=== PATIENT | male | born 1950 | race Caucasian/White ===

== ENCOUNTER 2017-10-14 01:18 | Inpatient (IN) | payer MEDICARE, BC ==
[~2017-10-14] VITALS: Ht 180.3 cm; Wt 108.6 kg
[2017-10-14] MEDS ORDERED: SODIUM CHLORIDE 0.9% 1L BAG IV* STA (01:31)
[2017-10-14] MEDS ORDERED: LORAZEPAM 2 MG INJ IV ONE (02:00)
--- NOTE | 2017-10-14 02:08 | RADRPT ---
PROCEDURE: CHEST - 1 VIEW CLINICAL INDICATION: 67-year-old male with shortness of breath and sepsis. TECHNIQUE: A single frontal AP portable view of the chest was performed. The images were reviewed on a PACS workstation. COMPARISON: None. FINDINGS: The cardiomediastinal silhouette is prominent but within normal limits. The right lower lateral ches t wall costophrenic angle is incompletely visualized. There is a shallow inspiration. There is patch y infiltrate within the left mid/lower lung zone. There is no evidence for congestive heart failure . There is no evidence for pneumothorax. The osseous structures are intact. IMPRESSION: Patchy left mid/lower lung zone infiltrate. .Tristan Head MD, Date Time Electronically viewed and signed by .Tristan Head MD, on 10/14/2017 02:07 .[place]
[2017-10-14 02:29] LABS: ABNORMAL IP MESSAGE 1; BASOPHILS % 0.3 % (0.0-2.0); HEMATOCRIT 41.4 % (42.0-52.0); HEMOGLOBIN 14.4 g/dl (14.0-18.0); LYMPHOCYTES # 0.4 10^3/ul (0.8-2.9); LYMPHOCYTES % 3.4 % (15.0-51.0); MEAN CORPUSCULAR HEMOGLOBIN 31.7 pg (29.0-33.0); MEAN CORPUSCULAR HGB CONC 34.8 g/dl (32.0-37.0); MEAN CORPUSCULAR VOLUME 91.2 fl (82.0-101.0); MEAN PLATELET VOLUME 11.1 fl (7.4-10.4); MONOCYTE # 0.7 10^3/ul (0.3-0.9); MONOCYTES % 5.8 % (0.0-11.0); NEUTROPHIL # 11.5 10^3/ul (1.6-7.5); NEUTROPHILS % 89.8 % (39.0-77.0); PLATELET COUNT 122 10^3/UL (140-415); POSITIVE DIFF @See below; RED BLOOD COUNT 4.54 10^6/ul (4.70-6.10); RED CELL DISTRIBUTION WIDTH 13.7 % (11.5-14.5); WHITE BLOOD COUNT 12.8 10^3/ul (4.8-10.8)
[2017-10-14 02:49] LABS: ALBUMIN 3.7 g/dl (3.3-4.9); ALBUMIN/GLOBULIN RATIO 1.19; BILIRUBIN,INDIRECT 0.4 mg/dl (0-1.1); BILIRUBIN,TOTAL 0.4 mg/dl (0.2-1.3); CALCIUM 8.1 mg/dl (8.4-10.2); CREATININE 1.07 mg/dl (0.61-1.24); POTASSIUM 3.3 mmol/L (3.5-5.1); TOTAL PROTEIN 6.8 g/dl (6.1-8.1)
[2017-10-14 02:53] LABS: ADD UMIC YES; UR ASCORBIC ACID 40 mg/dL (NEGATIVE); UR BILIRUBIN (Dip) NEGATIVE (NEGATIVE); UR BLOOD (Dip) 1+ mg/dL (NEGATIVE); UR CLARITY SLIGHTLY CLOUDY (CLEAR); UR COLOR AMBER (YELLOW); UR GLUCOSE (Dip) 1+ mg/dL (NEGATIVE); UR KETONES (Dip) 1+ mg/dL (NEGATIVE); UR LEUKOCYTE ESTERASE (Dip) NEGATIVE Leu/ul (NEGATIVE); UR MUCUS MODERATE /HPF (NONE SEEN); UR NITRITE (Dip) NEGATIVE (NEGATIVE); UR RBC 3 /HPF (0-5); UR SPECIFIC GRAVITY (Dip) 1.028 (1.003-1.030); UR SQUAMOUS EPITHELIAL CELL FEW /HPF (FEW); UR TOTAL PROTEIN (Dip) 2+ mg/dl (NEGATIVE); UR UROBILINOGEN (Dip) NEGATIVE (NEGATIVE)
[2017-10-14 02:55] LABS: INR 1.03; PROTIME 13.5 Sec (12.2-14.2); PT RATIO 1.1
[2017-10-14 02:56] LABS: PARTIAL THROMBOPLASTIN TIME 34.4 Sec (25.0-35.0)
[2017-10-14 03:03] LABS: TROPONIN-I 0.159 ng/ml (0.00-0.12)
--- NOTE | 2017-10-14 04:22 | ERD ---
ER Documentation Chief Complaint Chief Complaint YOAN Rangel1, from home, c/o dizziness,hx ETOH abuse, last drink a week ago HPI This is a 67-year-old male brought in by BLS from home with complaints of dizziness. Patient has history of chronic alcohol abuse and said he stopped drinking 1 week ago. He says he feels dizzy and tremulous. Denies any chest pain or palpitations. Denies any focal neurological complaints. Denies any auditory or visual hallucinations. Symptomology started 2 days ago and is been getting progressively worse for the patient. ROS All systems reviewed and are negative except as per history of present illness. Allergies Allergies: Coded Allergies: No Known Allergy (Unverified , 10/14/17) PMhx/Soc History of Surgery: No Anesthesia Reaction: No Hx Neurological Disorder: No Hx Respiratory Disorders: No Hx Cardiac Disorders: No Hx Psychiatric Problems: No Hx Miscellaneous Medical Probl: Yes Hx Alcohol Use: Yes Hx Substance Use: No Hx Tobacco Use: Yes (quit cigarettes 1 wk ago) Smoking Status: Former smoker Physical Exam Vitals Vital Signs Date Time Temp Pulse Resp B/P Pulse Ox O2 Delivery O2 Flow Rate FiO2 10/14/17 01:55 102.3 120 24 154/93 98 Room Air 10/14/17 01:23 102.9 99 18 174/117 98 Physical Exam Const: [] Head: Atraumatic Eyes: Normal Conjunctiva ENT: Normal External Ears, Nose and Mouth. Neck: Full range of motion..~ No meningismus. Resp: Clear to auscultation bilaterally Cardio: Regular rate and rhythm, no murmurs Abd: Soft, non tender, non distended. Normal bowel sounds Skin: No petechiae or rashes Back: No midline or flank tenderness Ext: No cyanosis, or edema Neur: Awake and alert Psych: Normal Mood and Affect Result Diagram: 10/14/1715410/14/17 0155 Results 24 hrs Laboratory Tests Test 10/14/17 01:55 White Blood Count 12.810^3/ul Red Blood Count 4.5410^6/ul Hemoglobin 14.4g/dl Hematocrit 41.4% Mean Corpuscular Volume 91.2fl Mean Corpuscular Hemoglobin 31.7pg Mean Corpuscular Hemoglobin Concent 34.8g/dl Red Cell Distribution Width 13.7% Platelet Count 94289^3/UL Mean Platelet Volume 11.1fl Neutrophils % 89.8% Lymphocytes % 3.4% Monocytes % 5.8% Eosinophils % 0.0% Basophils % 0.3% Nucleated Red Blood Cells % 0.0/100WBC Neutrophils # 11.510^3/ul Lymphocytes # 0.410^3/ul Monocytes # 0.710^3/ul Eosinophils # 0.010^3/ul Basophils # 0.010^3/ul Nucleated Red Blood Cells # 0.010^3/ul Prothrombin Time 13.5Sec Prothrombin Time Ratio 1.1 INR International Normalized Ratio 1.03 Activated Partial Thromboplast Time 34.4Sec Urine Color BECKY Urine Clarity SLIGHTLY CLOUDY Urine pH 5.0 Urine Specific [place] 1.028 Urine Ketones 1+mg/dL Urine Nitrite NEGATIVEmg/dL Urine Bilirubin NEGATIVEmg/dL Urine Urobilinogen NEGATIVEmg/dL Urine Leukocyte Esterase NEGATIVELeu/ul Urine Microscopic RBC 3/HPF Urine Microscopic WBC 8/HPF Urine Squamous Epithelial Cells FEW/HPF Urine Mucus MODERATE/HPF Urine Hemoglobin 1+mg/dL Urine Glucose 1+mg/dL Urine Total Protein 2+mg/dl Sodium Level 131mmol/L Potassium Level 3.3mmol/L Chloride Level 98mmol/L Carbon Dioxide Level 19mmol/L Anion Gap 17 Blood Urea Nitrogen 17mg/dl Creatinine 1.07mg/dl Glucose Level 162mg/dl Lactic Acid Level 1.9mmol/L Calcium Level 8.1mg/dl Total Bilirubin 0.4mg/dl Direct Bilirubin 0.00mg/dl Indirect Bilirubin 0.4mg/dl Aspartate Amino Transf (AST/SGOT) 43IU/L Alanine Aminotransferase (ALT/SGPT) 29IU/L Alkaline Phosphatase 82IU/L Troponin I 0.159ng/ml Total Protein 6.8g/dl Albumin 3.7g/dl Globulin 3.10g/dl Albumin/Globulin Ratio 1.19 Current Medications Medications (Trade) Dose Ordered Sig/Joey Route PRN Reason Start Time Stop Time Status Last Admin Dose Admin Sodium Chloride (NS) 3,380 ml BOLUS OVER 2 HOURS STAT IV* 10/14/17 01:31 10/14/17 01:32 DC 10/14/17 02:43 Lorazepam (Ativan) 2 mg ONCE ONCE IV 10/14/17 02:00 10/14/17 02:01 DC 10/14/17 02:43 Procedures/MDM EKG: Rate/Rhythm: [Normal Sinus Rhythm] QRS, ST, T-waves: [No changes consistent w/ acute ischemia] Impression: [No evidence of ischemia or arrhythmia] Chest X-ray 1V Interpreted by me: Soft Tissue: No acute abnormalities Bones: No acute abnormalities Mediastinum/Cardiac Silhouette/Lungs: [No acute abnormalities] Patient's symptoms are concerning for cardiac cause will require inpatient workup and continuous monitoring. Further w/u for ischemia, arrhythmia, PE or dissection will be deferred to the inpatient team. Patient has a positive troponin possibly secondary to alcohol withdrawal and the stress that is per the mother. He will be admitted to hospitalist with cardiology consultation Accepting Care Team: Current data and ongoing care discussed. Time: 5 AM Primary Provider: Ki Consulting: [MIL] Outstanding Data: none Critical Care: Time: 45 minutes Treatments/Evaluations: Close monitoring and treatment of unstable vital signs, cardiorespiratory, and neurologic status, while maintaining tight balance of fluid, respiratory, and cardiac interventions. Departure Diagnosis: Primary Impression: NSTEMI (non-ST elevated myocardial infarction) Additional Impression: Alcohol withdrawal Complication of substance-induced condition: with unspecified complication Qualified Code: F10.239 - Alcohol withdrawal syndrome with complication Condition: Serious LAURO BRYSON Oct 14, 2017 04:22
[2017-10-14] MEDS ORDERED: ASPIRIN 81 MG TAB PO ONE (04:30)
[2017-10-14] MEDS ORDERED: ACETAMINOPHEN 325 MG TAB PO PRN (06:00)
[2017-10-14] MEDS ORDERED: BISACODYL (EC) 5 MG TAB PO PRN (06:00)
[2017-10-14] MEDS ORDERED: ONDANSETRON 4 MG INJ IV PRN (06:00)
[2017-10-14] MEDS ORDERED: NITROGLYCERIN (SL) 0.4 MG TAB SL PRN (06:00)
[2017-10-14] MEDS ORDERED: LEVOFLOXACIN 750MG/D5W (PMX) 150 ML IVPB SCH (06:00)
[2017-10-14] MEDS ORDERED: NACL 0.9% 3 ML SYG IV SCH (06:00)
[2017-10-14] MEDS ORDERED: LORAZEPAM 2 MG INJ IM PRN (06:00)
[2017-10-14] MEDS ORDERED: DOCUSATE SODIUM 100 MG CAP PO PRN (06:00)
[2017-10-14 09:30] VITALS: TEMP 99.1
[2017-10-14 10:08] LABS: ABNORMAL IP MESSAGE 1; BASOPHILS % 0.4 % (0.0-2.0); HEMATOCRIT 42.3 % (42.0-52.0); HEMOGLOBIN 14.5 g/dl (14.0-18.0); LYMPHOCYTES # 0.5 10^3/ul (0.8-2.9); LYMPHOCYTES % 4.2 % (15.0-51.0); MEAN CORPUSCULAR HEMOGLOBIN 32.1 pg (29.0-33.0); MEAN CORPUSCULAR HGB CONC 34.3 g/dl (32.0-37.0); MEAN CORPUSCULAR VOLUME 93.6 fl (82.0-101.0); MEAN PLATELET VOLUME 11.7 fl (7.4-10.4); MONOCYTE # 0.6 10^3/ul (0.3-0.9); MONOCYTES % 5.8 % (0.0-11.0); NEUTROPHIL # 9.8 10^3/ul (1.6-7.5); PLATELET COUNT 112 10^3/UL (140-415); POSITIVE DIFF @See below; RED BLOOD COUNT 4.52 10^6/ul (4.70-6.10); RED CELL DISTRIBUTION WIDTH 14.3 % (11.5-14.5); WHITE BLOOD COUNT 11.1 10^3/ul (4.8-10.8)
[2017-10-14 10:25] LABS: ALBUMIN 3.1 g/dl (3.3-4.9); ALBUMIN/GLOBULIN RATIO 1.06; BILIRUBIN,INDIRECT 0.3 mg/dl (0-1.1); BILIRUBIN,TOTAL 0.3 mg/dl (0.2-1.3); CALCIUM 7.4 mg/dl (8.4-10.2); CHOL/HDL RATIO 2.9 RATIO; CREATININE 0.9 mg/dl (0.61-1.24); MAGNESIUM 1.9 mg/dl (1.7-2.5); POTASSIUM 3.5 mmol/L (3.5-5.1)
[2017-10-14 11:12] LABS: THYROID STIMULATING HORMONE 1.35 MIU/L (0.465-4.680)
--- NOTE | 2017-10-14 11:16 | HP ---
Date/Time of Note Date/Time of Note DATE: 10/14/17 TIME: 11:06 Assessment/Plan VTE Prophylaxis VTE Prophylaxis Intervention: LMWH Assessment/Plan Chief Complaint/Hosp Course 67 yo male with h/o etoh use d/o, tobacco use d/o, hypertension, obesity, treated HCV who presents with fevers/cough/malaise with CXR suggestive of community acquired pneumonia. Labs notable for elevated troponin, likley 2/2 demand ischemia Community acquired pneumonia: - Will continue levaquin given clinical improvement - Duonebs given wheezing - Should have follow up imaging to ensure resolution of infiltrate given h/o smoking and risk for malignancy - Flu swab - Droplet precautions until flu neg NSTEMI: - Suspect this is type II from demand given systemic illness and lack of chest pain. Trend troponins - Check TTE - Aspirin daily - Hold AC unless markedly elevated troponins Tobacoo use d/o: - NRT if needed Etoh use d/o: - Monitor for signs of withdrawal, none currently Problems: HPI/ROS Admit Date/Time Admit Date/Time Hx of Present Illness 67 yo male with h/o tobacco use d/o, etoh use d/o, hypertension, obesity, HCV s/ p interferon. Was in [facility] until about a week ago. He has developed fevers, cough, malaise and lightheadnedness over this time. Body aches. Feels he has the "flu" though does also say he got the flu shot a couple months ago. Denies any chest symptoms beyond cough, no CP no angina. Also denies SOB though he is clearly tachypneic. Cough is dry, no phlegm. Yesterday developed n/v and diarrhea. Was lightheaded and weak so came to ED Here found to be febrile and mildly tachypneic. CXR shows infiltrate. Given levaquin and fliuds Seen after these events, feels a bit better he says Troponin is positive, denies any CP, no angina. Says he stopped drinking 1-2 weeks ago. Before this drank daily. Has never had withdrawals before. No known complications from etoh PMH/Family/Social Past Medical History Treated HCV Etoh use Tobacco use Obestiy Hypertension Social History Alcohol Use: heavy Smoking Status: Former smoker Drug Use: other Exam/Review of Systems Vital Signs Vitals Vital Signs Date Time Temp Pulse Resp B/P Pulse Ox O2 Delivery O2 Flow Rate FiO2 10/14/17 09:30 99.1 111 30 131/85 98 Room Air Exam Exam Alert, oriented x 3 Resting comfortably Mildly diaphoretic Slightly tachypneic, though nonlabored. Expiratory wheezing in LLL heart sound tachy, regular Abdomen obese, soft, nt Ext without edema Labs Result Diagram: 10/14/1795010/14/17950 Medications Medications Current Medications Levofloxacin/ Dextrose (Levaquin 750 Mg/ D5W 150 ml (Pmx)) 150 ml @ 100 mls/hr Q24H IVPB Last administered on 10/14/17t 06:12; Admin Dose 100 MLS/HR; Start 10/14/17 at 06:00 Lorazepam (Ativan) 1 mg Q4 PRN IM AGITATION/ANXIETY; Start 10/14/17 at 06:00 Ondansetron HCl (Zofran Inj) 4 mg Q6H PRN IV NAUSEA AND/OR VOMITING; Start at 06:00 Nitroglycerin (Nitroglycerin (Sl Tab) 0.4 Mg) 1 tab Q5M PRN SL CHEST PAIN; Start 10/14/17 at 06:00 Acetaminophen (Tylenol Tab) 650 mg Q6H PRN PO PAIN LEVEL 1-3 OR FEVER; Start 10/14/17 at 06:00 Docusate Sodium (Colace) 100 mg Q12H PRN PO CONSTIPATION; Start 10/14/17 at 06 :00 Bisacodyl (Dulcolax) 5 mg DAILY PRN PO CONSTIPATION; Start 10/14/17 at 06:00 Procedures Procedures EKG: Sinus tachy, prominent P waves, PVCs, PACs. No ST deviation DARYN BERNABE MD Oct 14, 2017 11:16
--- NOTE | 2017-10-14 14:08 | QN ---
Documentation Comment Observation Note: Time: 4 hours Family Hx: Negative for diabetes Evaluation: Multiple exams showed improving symptoms and no evidence of clinical decompensation. OLAMIDE HERNANDEZ MD Oct 14, 2017 14:08
[2017-10-14 15:08] LABS: CK-MB 5.44 ng/ml (0.0-2.4); TROPONIN-I 0.242 ng/ml (0.00-0.12)
--- NOTE | 2017-10-14 16:17 | RADRPT ---
Echocardiogram Report Patient Name: JAME GÓMEZ Gender: Male Date: 1950 Study Date: 14-Oct-2017 Refinisher: Gabriela [facility] Location: [facility] Ref. Physician: ANGELO RICHARDSON Quality: Adequate Procedures: Transthoracic echocardiogram with complete 2D, M-Mode, and doppler examination. Indications: Elevated troponin. 2D/M Mode Doppler Measurement Value Normal Ranges Measurement Value Normal Ranges LVIDd 2D 5.6 3.5 - 5.6 cm TONE Vmax 2.2 cm2 LVIDs 2D 4.5 2.1 - 4.1 cm AV Peak Eloy 1.5 m/sec FS 2D 19.6 % AV Peak PG 9.0 mmHg LVPWd 2D 1.5 0.6 - 1.1 cm LVOT Peak Eloy 1.0 m/sec IVSd 2D 1.5 0.6 - 1.1 cm LVOT Peak PG 4.0 mmHg IVS/LVPW 2D 1.0 MV E Peak Eloy 1.1 m/sec AoR Diam 2D 3.5 2.0 - 3.7 cm MV Decel Time 127 msec LA/Ao 2D 1 0 - 1 TR Peak Eloy 3.4 m/sec EDV 2D 176.0 cm3 TR Peak PG 45.0 mmHg ESV 2D 91.1 cm3 RVSP 48.0 mmHg LA Dimen 2D 3.9 2.3 - 4.0 cm LVOT Diam 2.1 cm LVOT Area 3.5 cm2 Findings Left Ventricle: Overall, mild left ventricular systolic dysfunction. Not all segments visualized. Normal left ventricular cavity size. Moderate concentric left ventricular hypertrophy. Ejection fraction is visually estimated at 45 %. Abnormal Diastolic Function. Right Ventricle: Normal right ventricular size. Normal right ventricular systolic function. Left Atrium: The left atrium is normal in size. Right Atrium: The right atrium is normal in size. Mitral Valve: Mild mitral leaflet calcification. Mild mitral annular calcification. Trace mitral regurgitation. Aortic Valve: Normal appearance of the aortic valve. No significant aortic stenosis or insufficiency. Tricuspid Valve: Normal appearance of the tricuspid valve. Estimated peak PA systolic pressure 48 mmHg. There is mild tricuspid regurgitation. Pericardium: Normal pericardium with no significant pericardial effusion. Aorta: Normal aortic root. IVC: Normal size and normal respiratory collapse consistent with normal right atrial pressure. Conclusions 1.Overall, mild left ventricular systolic dysfunction. Not all segments visualized. Normal left ventricular cavity size. Moderate concentric left ventricular hypertrophy. Ejection fraction is visually estimated at 45 %. Abnormal Diastolic Function. 2.Normal right ventricular size. Normal right ventricular systolic function. 3.The left atrium is normal in size. 4.The right atrium is normal in size. 5.Normal appearance of the tricuspid valve. Estimated peak PA systolic pressure 48 mmHg. There is mild tricuspid regurgitation. 6.No significant valvular stenosis or regurgitation seen of remaining visualized valves. 7.Normal pericardium with no significant pericardial effusion. Electronically Signed By: Jame Moreau 14-Oct-2017 16:17:01 -0800 Patient Name: JAME GÓMEZ Study Date: 14-Oct-2017 [id number]
[2017-10-14 18:26] VITALS: PULSE 157
[2017-10-14 18:31] VITALS: BP 141/93; RESP 45
[2017-10-14] MEDS: ALBUTEROL/IPRATROPIUM (NEB) 3 ML AMP HHN SCH ×2 (18:46→20:43)
[2017-10-14] MEDS ORDERED: VANCOMYCIN IV PER PHARMACY XX SCH (19:30)
[2017-10-14] MEDS ORDERED: ACETYLCYSTEINE 20% 4 ML VIAL ONE (19:32)
[2017-10-14 19:44] VITALS: BP 159/98; RESP 24
[2017-10-14 20:00] VITALS: PULSE 136
[2017-10-14] MEDS: IBUPROFEN 600 MG TAB PO PRN ×2 (20:48→20:50)
[2017-10-14] MEDS: PIPER-TAZO 3.375 GM IV (PMX) 50 ML IVPB SCH (20:51)
[2017-10-14 21:21] LABS: CK-MB 5.43 ng/ml (0.0-2.4); TROPONIN-I 0.272 ng/ml (0.00-0.12)
[2017-10-14] MEDS ORDERED: VANCOMYCIN 2 GM in SOD CHLORIDE 0.9% 500 ML IVPB SCH (21:30)
[2017-10-14 23:13] VITALS: Ht 180.3 cm; Wt 108.6 kg
[2017-10-15] VITALS (13 sets, daily range): BP systolic 111–161; BP diastolic 59–105; PULSE 89–132; RESP 18–24
[2017-10-15] MEDS ORDERED: SOD CHLORIDE 0.9% 500 ML IV ONE
[2017-10-15] MEDS: ALBUTEROL/IPRATROPIUM (NEB) 3 ML AMP HHN SCH ×6 (01:00→20:21)
[2017-10-15 03:51] LABS: CALCIUM 7.6 mg/dl (8.4-10.2); CREATININE 0.86 mg/dl (0.61-1.24); MAGNESIUM 2.4 mg/dl (1.7-2.5)
[2017-10-15 03:54] LABS: POTASSIUM 2.9 mmol/L (3.5-5.1)
[2017-10-15] MEDS ORDERED: POTASSIUM CHLORIDE 250 ML IVPB ONE (04:00)
[2017-10-15] MEDS ORDERED: POTASSIUM CHLORIDE (SR) 20 MEQ TAB PO ONE (04:02)
[2017-10-15] MEDS: PIPER-TAZO 3.375 GM IV (PMX) 50 ML IVPB SCH ×3 (04:10→17:36)
[2017-10-15 07:32] LABS: ABNORMAL IP MESSAGE 1; BASOPHILS % 0.5 % (0.0-2.0); MONOCYTE # 0.4 10^3/ul (0.3-0.9); NEUTROPHIL # 7.4 10^3/ul (1.6-7.5)
[2017-10-15 07:42] LABS: EOSINOPHILS % 0.1 % (0.0-7.0); HEMATOCRIT 45.4 % (42.0-52.0); HEMOGLOBIN 15.4 g/dl (14.0-18.0); LYMPHOCYTES # 0.2 10^3/ul (0.8-2.9); LYMPHOCYTES % 2.9 % (15.0-51.0); MEAN CORPUSCULAR HEMOGLOBIN 31.7 pg (29.0-33.0); MEAN CORPUSCULAR HGB CONC 33.9 g/dl (32.0-37.0); MEAN CORPUSCULAR VOLUME 93.4 fl (82.0-101.0); MEAN PLATELET VOLUME 11.2 fl (7.4-10.4); MONOCYTES % 4.7 % (0.0-11.0); NEUTROPHILS % 90.3 % (39.0-77.0); PLATELET COUNT 104 10^3/UL (140-415); POSITIVE DIFF @See below; RED BLOOD COUNT 4.86 10^6/ul (4.70-6.10); RED CELL DISTRIBUTION WIDTH 14.3 % (11.5-14.5); WHITE BLOOD COUNT 8.1 10^3/ul (4.8-10.8)
[2017-10-15 08:11] LABS: ALBUMIN 2.6 g/dl (3.3-4.9); ALBUMIN/GLOBULIN RATIO 0.89; BILIRUBIN,INDIRECT 0.4 mg/dl (0-1.1); BILIRUBIN,TOTAL 0.4 mg/dl (0.2-1.3); CREATININE 0.93 mg/dl (0.61-1.24); POTASSIUM 3.7 mmol/L (3.5-5.1); TOTAL PROTEIN 5.5 g/dl (6.1-8.1)
[2017-10-15 08:24] LABS: CK-MB 10.1 ng/ml (0.0-2.4); TROPONIN-I 0.158 ng/ml (0.00-0.12)
[2017-10-15] MEDS: ASPIRIN 81 MG TAB PO SCH (08:38)
[2017-10-15] MEDS: ENOXAPARIN 30 MG/0.3 ML SYG SC SCH (08:39)
--- NOTE | 2017-10-15 08:46 | RADRPT ---
PROCEDURE: CT chest without intravenous contrast CLINICAL INDICATION: Respiratory failure. COMPARISON: Chest plain film 10/14/2017. TECHNIQUE: Axial images of the chest with sagittal and coronal reconstructions. DICOM images are brit ilable. DOSE ESTIMATE: CTDI vol = 16.36 mGy. DLP = 676.52 mGy-cm. One or more of the following dose reduct ion techniques were used: automated exposure control, adjustment of the mA and/or kV according to pa tient size, or use of iterative reconstruction. FINDINGS: Lungs: There is dense consolidation with air bronchogram involving the left apical posterior segment of the upper lobe and lingula. Diffuse infiltrates are present within the left apex and anterior le ft upper lobe. Pleura: There is a small left-sided pleural effusion. Airway: The central tracheobronchial tree is clear. There is no demonstration of an endobronchial or extrinsically obstructing lesion. Mediastinum and irina: No adenopathy. No hiatal hernia. Vessels: There is borderline aneurysmal dilatation of the ascending thoracic aorta which measures 4. 2 x 4.8 cm in AP and transverse dimensions respectively. The descending thoracic aorta measures 3.5 x 3.4 cm. Minimal aortic atherosclerotic calcifications are present. Heart: There is moderately severe cardiomegaly without evidence of a pericardial effusion. Left ant erior descending atherosclerotic calcifications are noted. Bones: Anterior spinal degenerative enthesopathy changes involve T4 - T6. Soft tissues: Normal. Visualized neck: Normal. Visualized abdomen: 3 cm left upper pole renal cyst demonstrated on axial image 140. IMPRESSION: 1. Dense consolidation of the apical posterior left upper lobe and lingula. No evidence of an endob ronchial or extrinsically compressing mass. 2. Diffuse pneumonic infiltrates within the left apex and anterior left upper lobe. 3. Small left-sided pleural effusion. 4. Moderately severe cardiomegaly. 5. Aneurysmal dilatation of the ascending thoracic aorta measuring 4.2 x 4.8 cm. The descending tho racic aorta measures 3.5 x 3.4 cm. 6. 3 cm left upper pole renal cyst. RPTAT: HRSR Physician Blue Date Time Electronically viewed and signed by Physician Blue on 10/15/2017 08:46 RR/
[2017-10-15] MEDS ORDERED: VANCOMYCIN 1.5 GM in SOD CHLORIDE 0.9% 250 ML IVPB SCH (11:00)
[2017-10-15] MEDS: VANCOMYCIN 1.25 GM in SOD CHLORIDE 0.9% 250 ML IVPB SCH (11:27)
[2017-10-15 13:03] LABS: TROPONIN-I 0.107 ng/ml (0.00-0.12)
[2017-10-15 13:04] LABS: CK-MB 9.16 ng/ml (0.0-2.4)
--- NOTE | 2017-10-15 14:13 | PN ---
Date/Time of Note Date/Time of Note DATE: 10/15/17 TIME: 14:12 Assessment/Plan VTE Prophylaxis VTE Prophylaxis Intervention: LMWH Lines/Catheters IV Catheter Type (from Nrs): Peripheral IV Urinary Cath still in place: Yes Reason Cath still needed: urinary retention Assessment/Plan Chief Complaint/Hosp Course 67 yo male with h/o etoh use d/o, tobacco use d/o, hypertension, obesity, treated HCV who presents with fevers/cough/malaise with CXR suggestive of community acquired pneumonia. Labs notable for elevated troponin, likley 2/2 demand ischemia Pneumonia leading to sepsis: - Continue vancomycin and levaquin for now - Duonebs given wheezing - Flu swab negative NSTEMI: - Suspect this is type II from demand given systemic illness and lack of chest pain. Trend troponins - TTE with concentric LVH, EF 45% - Aspirin daily Tobacoo use d/o: - NRT if needed Etoh use d/o: - Monitor for signs of withdrawal, none currently Discharge in coming 1-2 days if remains stable/improved Problems: Subjective 24 Hr Interval Summary Free Text/Dictation Abx broadened last night to vanco/zosyn. Fevers resolved No longer feeling SOB CT shows pneumonia Exam/Review of Systems Vital Signs Vitals Vital Signs Date Time Temp Pulse Resp B/P Pulse Ox O2 Delivery O2 Flow Rate FiO2 10/15/17 12:00 89 10/15/17 11:35 98.5 19 115/59 96 10/15/17 05:22 21 10/14/17 17:30 Room Air Intake and Output 10/14/17 10/14/17 10/15/17 14:59 22:59 06:59 Intake Total 600 ml Balance 600 ml Exam Constitutional: alert, oriented, well developed Psych: nl mood/affect, no complaints Head: atraumatic, normocephalic Eyes: EOMI, PERRL, nl conjunctiva, nl lids, nl sclera ENMT: nl external ears & nose, nl lips & teeth, nl nasal mucosa & septum Neck: non-tender, supple Respiratory: clear to auscultation, normal air movement Cardiovascular: nl pulses, regular rate and rhythm Gastrointestinal: nl liver, spleen, non-tender, soft Musculoskeletal: nl extremities to inspection, nl gait and stance Extremities: normal pulses Neurological: ROLLER MAKER II-XII intact, nl mental status, nl speech, nl strength Skin: nl turgor, No rash or lesions Lymph: nl lymph nodes Results Result Diagram: 10/15/17 0709 10/15/17 0709 Results 24 hrs Laboratory Tests Test 10/14/17 14:25 10/14/17 20:40 10/15/17 03:09 10/15/17 07:09 Creatine Kinase 980 H 1054 H 815 H Creatine Kinase Index 0.6 0.5 1.2 Creatinine Kinase MB (Mass) 5.44 H 5.43 H 10.10 H Troponin I 0.242 *H 0.272 *H 0.158 *H Sodium Level 138 139 Potassium Level 2.9 *L 3.7 Chloride Level 108 108 Carbon Dioxide Level 19 L 21 Anion Gap 14 14 Blood Urea Nitrogen 18 21 H Creatinine 0.86 0.93 Glucose Level 115 109 Calcium Level 7.6 L 8.0 L Magnesium Level 2.4 White Blood Count 8.1 # Red Blood Count 4.86 Hemoglobin 15.4 Hematocrit 45.4 Mean Corpuscular Volume 93.4 Mean Corpuscular Hemoglobin 31.7 Mean Corpuscular Hemoglobin Concent 33.9 Red Cell Distribution Width 14.3 Platelet Count 104 L Mean Platelet Volume 11.2 H Neutrophils % 90.3 H Lymphocytes % 2.9 L Monocytes % 4.7 Eosinophils % 0.1 Basophils % 0.5 Nucleated Red Blood Cells % 0.0 Neutrophils # 7.4 Lymphocytes # 0.2 L Monocytes # 0.4 Eosinophils # 0.0 Basophils # 0.0 Nucleated Red Blood Cells # 0.0 Total Bilirubin 0.4 Direct Bilirubin 0.00 Indirect Bilirubin 0.4 Aspartate Amino Transf (AST/SGOT) 89 #H Alanine Aminotransferase (ALT/SGPT) 54 Alkaline Phosphatase 59 Total Protein 5.5 L Albumin 2.6 L Globulin 2.90 Albumin/Globulin Ratio 0.89 Test 10/15/17 12:16 Creatine Kinase 679 H Creatine Kinase Index 1.3 Creatinine Kinase MB (Mass) 9.16 H Troponin I 0.107 Medications Medications Current Medications Lorazepam (Ativan) 1 mg Q4 PRN IM AGITATION/ANXIETY; Start 10/14/17 at 06:00 Ondansetron HCl (Zofran Inj) 4 mg Q6H PRN IV NAUSEA AND/OR VOMITING; Start at 06:00 Nitroglycerin (Nitroglycerin (Sl Tab) 0.4 Mg) 1 tab Q5M PRN SL CHEST PAIN; Start 10/14/17 at 06:00 Docusate Sodium (Colace) 100 mg Q12H PRN PO CONSTIPATION; Start 10/14/17 at 06 :00 Bisacodyl (Dulcolax) 5 mg DAILY PRN PO CONSTIPATION; Start 10/14/17 at 06:00 Ibuprofen (Motrin) 600 mg Q6H PRN PO PAIN LEVEL 1-3 Last administered on 20:48; Admin Dose 600 MG; Start 10/14/17 at 11:30 Enoxaparin Sodium (Lovenox) 30 mg DAILY SC Last administered on 10/15/17 08: 39; Admin Dose 30 MG; Start 10/15/17 at 09:00 Aspirin 81 mg 81 mg DAILY PO Last administered on 10/15/17 08:38; Admin Dose 81 MG; Start 10/15/17 at 09:00 Piperacillin Sod/ Tazobactam Sod (Zosyn 3.375gm/ 50 ml (Pmx)) 50 ml @ 12.5 mls/ hr TID@02,10,18 IVPB Last administered on 10/15/17 10:42; Admin Dose 12.5 MLS /HR; Start 10/14/17 at 19:30 Influenza Virus Vaccine 0.5 ml 0.5 ml ONCE ONCE IM* ; Start 10/16/17 at 09:00; Stop 10/16/17 at 09:01 Vancomycin HCl/ Sodium Chloride (Vancocin/NS) 250 ml @ 83.333 mls/ hr Q12H IVPB Last administered on 10/15/17 11:27; Admin Dose 83.333 MLS/HR; Start at 11:00 Miscellaneous Information (*Rx Drug Level Order Reminder*) VANCOMYCIN TROUGH ON @ .. ONCE ONCE XX ; Start 10/16/17 at 10:00; Stop 10/16/17 at 10:01 DARYN BERNABE MD Oct 15, 2017 14:13
[2017-10-15 19:04] LABS: TROPONIN-I 0.098 ng/ml (0.00-0.12)
[2017-10-15 19:05] LABS: CK-MB 8.59 ng/ml (0.0-2.4)
[2017-10-16] VITALS (15 sets, daily range): BP systolic 113–186; BP diastolic 78–128; PULSE 94–141; RESP 18–20
[2017-10-16] MEDS: VANCOMYCIN 1.25 GM in SOD CHLORIDE 0.9% 250 ML IVPB SCH ×2 (00:43→11:40)
[2017-10-16] MEDS: ALBUTEROL/IPRATROPIUM (NEB) 3 ML AMP HHN SCH ×6 (01:39→22:36)
[2017-10-16] MEDS: ZOLPIDEM 5 MG TAB PO PRN (01:55)
[2017-10-16] MEDS: PIPER-TAZO 3.375 GM IV (PMX) 50 ML IVPB SCH ×3 (03:27→17:34)
[2017-10-16 06:46] LABS: ABNORMAL IP MESSAGE 1; BASOPHILS % 0.5 % (0.0-2.0); EOSINOPHILS % 0.6 % (0.0-7.0); HEMATOCRIT 39.3 % (42.0-52.0); HEMOGLOBIN 13.6 g/dl (14.0-18.0); LYMPHOCYTES # 0.5 10^3/ul (0.8-2.9); LYMPHOCYTES % 7.1 % (15.0-51.0); MEAN CORPUSCULAR HEMOGLOBIN 31.6 pg (29.0-33.0); MEAN CORPUSCULAR HGB CONC 34.6 g/dl (32.0-37.0); MEAN CORPUSCULAR VOLUME 91.4 fl (82.0-101.0); MEAN PLATELET VOLUME 11.4 fl (7.4-10.4); MONOCYTE # 0.6 10^3/ul (0.3-0.9); MONOCYTES % 8.3 % (0.0-11.0); NEUTROPHIL # 5.5 10^3/ul (1.6-7.5); PLATELET COUNT 127 10^3/UL (140-415); POSITIVE DIFF @See below; RED CELL DISTRIBUTION WIDTH 14.5 % (11.5-14.5); WHITE BLOOD COUNT 6.7 10^3/ul (4.8-10.8)
[2017-10-16 07:26] LABS: ALBUMIN 2.7 g/dl (3.3-4.9); ALBUMIN/GLOBULIN RATIO 0.84; BILIRUBIN,INDIRECT 0.2 mg/dl (0-1.1); BILIRUBIN,TOTAL 0.2 mg/dl (0.2-1.3); CALCIUM 7.7 mg/dl (8.4-10.2); CREATININE 0.87 mg/dl (0.61-1.24); POTASSIUM 3.2 mmol/L (3.5-5.1); TOTAL PROTEIN 5.9 g/dl (6.1-8.1)
[2017-10-16] MEDS ORDERED: INFLUENZA VIRUS VACCINE 0.5 ML (DISPENSING) IM* ONE (09:00)
[2017-10-16] MEDS: ASPIRIN 81 MG TAB PO SCH (09:41)
[2017-10-16] MEDS ORDERED: POTASSIUM CHLORIDE (SR) 20 MEQ TAB PO STA (09:54)
[2017-10-16] MEDS: ENOXAPARIN 30 MG/0.3 ML SYG SC SCH (10:12)
[2017-10-16 10:19] LABS: HAAIG REFLEX REFLEX FILED
[2017-10-16 11:41] LABS: HEPATITIS B CORE ANTIBODY REACTIVE (NEGATIVE)
--- NOTE | 2017-10-16 13:38 | PN ---
Date/Time of Note Date/Time of Note DATE: 10/16/17 TIME: 13:21 Assessment/Plan VTE Prophylaxis VTE Prophylaxis Intervention: LMWH Lines/Catheters IV Catheter Type (from Nrs): Saline Lock Urinary Cath still in place: Yes Reason Cath still needed: urinary retention Assessment/Plan Chief Complaint/Hosp Course 67 yo male with h/o etoh use d/o, tobacco use d/o, hypertension, obesity, treated HCV who presents with fevers/cough/malaise with CXR suggestive of community acquired pneumonia. Labs notable for elevated troponin, likley 2/2 demand ischemia Pneumonia leading to sepsis: - Continue vancomycin and levaquin for now - Duonebs given wheezing - Flu swab negative - Staph bacteremia - > Coag negative likely contaminiant. Repeat, awiait final C/S NSTEMI: - Suspect this is type II from demand given systemic illness and lack of chest pain. Trend troponins - TTE with concentric LVH, EF 45% - Aspirin daily Ectopy: - Start lopressor 25 BID Hypertension wtih concentric left ventricular hypertrophy - Start lisinopril 5 mg Tobacoo use d/o: - NRT if needed Etoh use d/o: - Monitor for signs of withdrawal, none currently Discharge in coming 1-2 days if remains stable/improved Problems: Subjective 24 Hr Interval Summary Free Text/Dictation Doing much better today Still having frequent ectopy on telemetry No longer w dypsnea or wheeze Exam/Review of Systems Vital Signs Vitals Vital Signs Date Time Temp Pulse Resp B/P Pulse Ox O2 Delivery O2 Flow Rate FiO2 10/16/17 12:13 115 10/16/17 11:54 98.0 18 124/94 97 10/16/17 05:40 21 10/14/17 17:30 Room Air Intake and Output 10/15/17 10/15/17 10/16/17 15:00 23:00 07:00 Intake Total 50 ml 1050 ml 700 ml Balance 50 ml 1050 ml 700 ml Exam Constitutional: alert, oriented, well developed Psych: nl mood/affect, no complaints Head: atraumatic, normocephalic Eyes: EOMI, PERRL, nl conjunctiva, nl lids, nl sclera ENMT: nl external ears & nose, nl lips & teeth, nl nasal mucosa & septum Neck: non-tender, supple Respiratory: clear to auscultation, normal air movement Cardiovascular: nl pulses, regular rate and rhythm Gastrointestinal: nl liver, spleen, non-tender, soft Musculoskeletal: nl extremities to inspection, nl gait and stance Extremities: normal pulses Neurological: MEDICAL OFFICE REPRESENTATIVE II-XII intact, nl mental status, nl speech, nl strength Skin: nl turgor, No rash or lesions Lymph: nl lymph nodes Results Result Diagram: 10/16/17 0624 10/16/17 0624 Results 24 hrs Laboratory Tests Test 10/15/17 18:02 10/16/17 06:24 10/16/17 09:56 10/16/17 10:05 Creatine Kinase 571 H Creatine Kinase Index 1.5 Creatinine Kinase MB (Mass) 8.59 H Troponin I 0.098 White Blood Count 6.7 Red Blood Count 4.30 L Hemoglobin 13.6 L Hematocrit 39.3 L Mean Corpuscular Volume 91.4 Mean Corpuscular Hemoglobin 31.6 Mean Corpuscular Hemoglobin Concent 34.6 Red Cell Distribution Width 14.5 Platelet Count 127 #L Mean Platelet Volume 11.4 H Neutrophils % 82.0 H Lymphocytes % 7.1 L Monocytes % 8.3 Eosinophils % 0.6 Basophils % 0.5 Nucleated Red Blood Cells % 0.0 Neutrophils # 5.5 Lymphocytes # 0.5 L Monocytes # 0.6 Eosinophils # 0.0 Basophils # 0.0 Nucleated Red Blood Cells # 0.0 Sodium Level 137 Potassium Level 3.2 L Chloride Level 108 Carbon Dioxide Level 20 L Anion Gap 12 Blood Urea Nitrogen 17 Creatinine 0.87 Glucose Level 110 Calcium Level 7.7 L Total Bilirubin 0.2 Direct Bilirubin 0.00 Indirect Bilirubin 0.2 Aspartate Amino Transf (AST/SGOT) 147 #H Alanine Aminotransferase (ALT/SGPT) 94 H Alkaline Phosphatase 71 Total Protein 5.9 L Albumin 2.7 L Globulin 3.20 Albumin/Globulin Ratio 0.84 Vancomycin Level Trough 9.1 L Thyroid Stimulating Hormone (TSH) 1.360 Hepatitis B Surface Antigen NEGATIVE Hepatitis B Core Total Antibody REACTIVE H Hepatitis C Antibody REACTIVE H Medications Medications Current Medications Lorazepam (Ativan) 1 mg Q4 PRN IM AGITATION/ANXIETY; Start 10/14/17 at 06:00 Ondansetron HCl (Zofran Inj) 4 mg Q6H PRN IV NAUSEA AND/OR VOMITING; Start at 06:00 Nitroglycerin (Nitroglycerin (Sl Tab) 0.4 Mg) 1 tab Q5M PRN SL CHEST PAIN; Start 10/14/17 at 06:00 Docusate Sodium (Colace) 100 mg Q12H PRN PO CONSTIPATION; Start 10/14/17 at 06 :00 Bisacodyl (Dulcolax) 5 mg DAILY PRN PO CONSTIPATION; Start 10/14/17 at 06:00 Ibuprofen (Motrin) 600 mg Q6H PRN PO PAIN LEVEL 1-3 Last administered on 20:48; Admin Dose 600 MG; Start 10/14/17 at 11:30 Enoxaparin Sodium (Lovenox) 30 mg DAILY SC Last administered on 10/16/17 10:12 ; Admin Dose 30 MG; Start 10/15/17 at 09:00 Aspirin 81 mg 81 mg DAILY PO Last administered on 10/16/17 09:41; Admin Dose 81 MG; Start 10/15/17 at 09:00 Piperacillin Sod/ Tazobactam Sod 50 ml @ 12.5 mls/hr TID@02,10,18 IVPB Last administered on 10/16/17 09:41; Admin Dose 12.5 MLS/HR; Start 10/14/17 at 19: 30 Vancomycin HCl/ Sodium Chloride (Vancocin/NS) 250 ml @ 83.333 mls/ hr Q12H IVPB Last administered on 10/16/17 11:40; Admin Dose 83.333 MLS/HR; Start at 11:00; Stop 10/16/17 at 15:00 Zolpidem Tartrate 10 mg 10 mg HS PRN PO INSOMNIA Last administered on 01:55; Admin Dose 10 MG; Start 10/16/17 at 01:45 Vancomycin HCl 100 ml @ 100 mls/hr ONCE IVPB ; Start 10/16/17 at 14:30; Stop 10/16/17 at 16:00 Vancomycin HCl/ Sodium Chloride (Vancocin/NS) 500 ml @ 125 mls/hr Q12H IVPB ; Start 10/17/17 at 00:00 DARYN BERNABE MD Oct 16, 2017 13:38
[2017-10-16] MEDS: METOPROLOL 25 MG TAB PO SCH ×2 (14:08→22:13)
[2017-10-16] MEDS ORDERED: VANCOMYCIN 500MG/NS (PMX) 100 ML IVPB SCH (14:30)
--- NOTE | 2017-10-16 14:48 | RADRPT ---
PROCEDURE: Right upper quadrant ultrasound CLINICAL INDICATION: Cirrhosis TECHNIQUE: Multiple real-time images were acquired of the patient's abdomen and right retroperiton eum utilizing a high resolution transducer. COMPARISON: None FINDINGS: The liver is normal in echogenicity and measures 19.9 cm. No focal hepatic masses are seen. Gallbla dder is not visualized and is likely contracted.. The intra and extrahepatic bile ducts are normal in caliber. The common bile duct measures 4.3 mm. Midline images demonstrate the pancreas to be normal in echogenicity without obvious inflammatory ch otto. Survey views of the right kidney demonstrate no evidence of hydronephrosis or renal calculi. The ri ght kidney measures 10.5 cm. There is right renal cyst measuring 2.5 cm IMPRESSION: 1. The gallbladder is not visualized and is likely contracted as the patient is not n.p.o.. 2. No biliary duct dilatation. 3. No anatomic features of cirrhosis. 4. No hepatic mass. 5. Otherwise unremarkable right upper quadrant ultrasound RPTAT: HH .Ortega Domingo MD, Date Time Electronically viewed and signed by .Ortega Domingo MD, on 10/16/2017 14:48 .W/
[2017-10-16] MEDS: VANCOMYCIN 1.75 GM in NS 500 ML IVPB SCH (23:21)
[2017-10-17] VITALS (14 sets, daily range): BP systolic 122–145; BP diastolic 80–105; PULSE 62–112; RESP 18–20
[2017-10-17] MEDS: ZOLPIDEM 5 MG TAB PO PRN (01:26)
[2017-10-17] MEDS: PIPER-TAZO 3.375 GM IV (PMX) 50 ML IVPB SCH ×3 (01:28→18:06)
[2017-10-17] MEDS: ALBUTEROL/IPRATROPIUM (NEB) 3 ML AMP HHN SCH ×6 (01:47→20:56)
[2017-10-17] MEDS: ASPIRIN 81 MG TAB PO SCH (08:16)
[2017-10-17] MEDS: METOPROLOL 25 MG TAB PO SCH (08:17)
[2017-10-17 08:27] LABS: BASOPHILS % 0.3 % (0.0-2.0); EOSINOPHILS % 0.7 % (0.0-7.0); HEMATOCRIT 35.8 % (42.0-52.0); HEMOGLOBIN 12.3 g/dl (14.0-18.0); LYMPHOCYTES # 0.6 10^3/ul (0.8-2.9); LYMPHOCYTES % 10.1 % (15.0-51.0); MEAN CORPUSCULAR HEMOGLOBIN 31.8 pg (29.0-33.0); MEAN CORPUSCULAR HGB CONC 34.4 g/dl (32.0-37.0); MEAN CORPUSCULAR VOLUME 92.5 fl (82.0-101.0); MEAN PLATELET VOLUME 11.3 fl (7.4-10.4); MONOCYTE # 0.6 10^3/ul (0.3-0.9); MONOCYTES % 10.5 % (0.0-11.0); NEUTROPHIL # 4.7 10^3/ul (1.6-7.5); NEUTROPHILS % 76.8 % (39.0-77.0); PLATELET COUNT 151 10^3/UL (140-415); RED BLOOD COUNT 3.87 10^6/ul (4.70-6.10); RED CELL DISTRIBUTION WIDTH 14.9 % (11.5-14.5); WHITE BLOOD COUNT 6.1 10^3/ul (4.8-10.8)
[2017-10-17] MEDS: ENOXAPARIN 30 MG/0.3 ML SYG SC SCH (08:29)
[2017-10-17 08:50] LABS: ALBUMIN 2.7 g/dl (3.3-4.9); ALBUMIN/GLOBULIN RATIO 0.9; BILIRUBIN,INDIRECT 0.2 mg/dl (0-1.1); BILIRUBIN,TOTAL 0.2 mg/dl (0.2-1.3); CREATININE 0.82 mg/dl (0.61-1.24); POTASSIUM 3.4 mmol/L (3.5-5.1); TOTAL PROTEIN 5.7 g/dl (6.1-8.1)
[2017-10-17] MEDS ORDERED: LISINOPRIL 5 MG TAB PO SCH (09:00)
[2017-10-17] MEDS: VANCOMYCIN 1.75 GM in NS 500 ML IVPB SCH (12:22)
[2017-10-17] MEDS ORDERED: LISI-313 PO (15:08)
[2017-10-17] MEDS ORDERED: SULF1TAB31 PO (15:08)
[2017-10-17] MEDS ORDERED: DOXY100C PO (15:08)
[2017-10-17] MEDS ORDERED: ASPI-664 PO (15:08)
[2017-10-17] MEDS ORDERED: METO-335 PO (15:08)
--- NOTE | 2017-10-17 15:10 | PDOCDIS ---
Discharge Instructions DIAGNOSIS Discharge Diagnosis Pneumonia CONDITION Patient Condition: Fair HOME CARE INSTRUCTIONS: Special Diet: Rergular diet FOLLOW UP/APPOINTMENTS Follow-up Plan Make an appointment to see a primary care doctor within the next 1-2 weeks You have been prescribed 5 more days of antibiotics (bactrim and doxycycline) to take for pneumonia. Return to the hospital if you do not feel like you are getting better or if you get worse You have also been prescribed lisinopril and metoprolol which are medications to treat you blood pressure as well as a daily baby aspirin to protect your heart. Your heart shows signs of damage from high blood pressure so it is imperative that you work with your doctor to ensure your blood pressure is controlled for the rest of your life. DARYN BERNABE MD Oct 17, 2017 15:10
--- NOTE | 2017-10-17 15:13 | DS ---
Date/Time of Note Date/Time of Note DATE: 10/17/17 TIME: 15:11 Discharge Summary Admission/Discharge Info Admit Date/Time Oct 14, 2017 at 04:13 Discharge Date/Time Discharge Diagnosis Pneumonia Patient Condition: Good Hx of Present Illness 67 yo male with h/o tobacco use d/o, etoh use d/o, hypertension, obesity, HCV s/ p interferon. Was in [facility] until about a week ago. He has developed fevers, cough, malaise and lightheadnedness over this time. Body aches. Feels he has the "flu" though does also say he got the flu shot a couple months ago. Denies any chest symptoms beyond cough, no CP no angina. Also denies SOB though he is clearly tachypneic. Cough is dry, no phlegm. Yesterday developed n/v and diarrhea. Was lightheaded and weak so came to ED Here found to be febrile and mildly tachypneic. CXR shows infiltrate. Given levaquin and fliuds Seen after these events, feels a bit better he says Troponin is positive, denies any CP, no angina. Says he stopped drinking 1-2 weeks ago. Before this drank daily. Has never had withdrawals before. No known complications from etoh Hospital Course The patient was found on CT scan to have infiltrates consistent with pneumonia. He was initiatlly treated with levaquin, but abx were broadened to zosyn and vancomycin as he continued to have fevers. He improved rapidly with these antibiotics. He had blood cultures growing CoNS which were thoguht to be contaminant as he does not have indwelling devices and TTE was negative for vegetations and BC cleared. Labs notable for mild troponin elevated which was thought to be from demand ischemia as he had no chest symptoms TTE showed concentric LVH and lower limit fo normal EF. Telemetry was notable for frequent ectopy. He was prescribed lisinopril 5 and Toprol 25 as well as aspirin 81 for heart protection. He was encouraged to establish care with PMD in the next 1-2 weeks. Home Meds Active Scripts Sulfamethoxazole/Trimethoprim* (Bactrim Ds* Tablet) 1 Each Tablet, 1 TAB PO BID for 5 Days, #10 TAB Prov:DARYN BERNABE MD 10/17/17 Doxycycline* (Vibramycin*) 100 Mg Capsule, 100 MG PO BID for 5 Days, #10 EA Prov:DARYN BERNABE MD 10/17/17 Aspirin* (Aspirin* EC) 81 Mg Tablet.dr, 81 MG PO DAILY for 30 Days, #30 TAB 5 Refills Prov:DARYN BERNABE MD 10/17/17 Metoprolol Succinate* (Toprol XL*) 25 Mg Tab.sr.24h, 25 MG PO DAILY for 30 Days , #30 TAB Prov:DARYN BERNABE MD 10/17/17 Lisinopril* (Lisinopril*) 5 Mg Tablet, 5 MG PO DAILY for 30 Days, #30 TAB Prov:DARYN BERNABE MD 10/17/17 Follow-up Plan Make an appointment to see a primary care doctor within the next 1-2 weeks You have been prescribed 5 more days of antibiotics (bactrim and doxycycline) to take for pneumonia. Return to the hospital if you do not feel like you are getting better or if you get worse You have also been prescribed lisinopril and metoprolol which are medications to treat you blood pressure as well as a daily baby aspirin to protect your heart. Your heart shows signs of damage from high blood pressure so it is imperative that you work with your doctor to ensure your blood pressure is controlled for the rest of your life. Primary Care Provider Not On Staff Doctor Pending Labs Laboratory Tests Test 10/17/17 07:34 White Blood Count 6.110^3/ul (4.8-10.8) Red Blood Count 3.8710^6/ul (4.70-6.10) Hemoglobin 12.3g/dl (14.0-18.0) Hematocrit 35.8% (42.0-52.0) Mean Corpuscular Volume 92.5fl (82.0-101.0) Mean Corpuscular Hemoglobin 31.8pg (29.0-33.0) Mean Corpuscular Hemoglobin Concent 34.4g/dl (32.0-37.0) Red Cell Distribution Width 14.9% (11.5-14.5) Platelet Count 03937^3/UL (140-415) Mean Platelet Volume 11.3fl (7.4-10.4) Neutrophils % 76.8% (39.0-77.0) Lymphocytes % 10.1% (15.0-51.0) Monocytes % 10.5% (0.0-11.0) Eosinophils % 0.7% (0.0-7.0) Basophils % 0.3% (0.0-2.0) Nucleated Red Blood Cells % 0.0/100WBC (0.0-0.0) Neutrophils # 4.710^3/ul (1.6-7.5) Lymphocytes # 0.610^3/ul (0.8-2.9) Monocytes # 0.610^3/ul (0.3-0.9) Eosinophils # 0.010^3/ul (0.0-0.5) Basophils # 0.010^3/ul (0.0-0.1) Nucleated Red Blood Cells # 0.010^3/ul (0.0-0.0) Sodium Level 142mmol/L (135-144) Potassium Level 3.4mmol/L (3.5-5.1) Chloride Level 109mmol/L (97-110) Carbon Dioxide Level 24mmol/L (21-31) Anion Gap 12 (8-16) Blood Urea Nitrogen 13mg/dl (7-20) Creatinine 0.82mg/dl (0.61-1.24) Glucose Level 108mg/dl (70-220) Calcium Level 8.0mg/dl (8.4-10.2) Total Bilirubin 0.2mg/dl (0.2-1.3) Direct Bilirubin 0.00mg/dl (0.00-0.20) Indirect Bilirubin 0.2mg/dl (0-1.1) Aspartate Amino Transf (AST/SGOT) 77IU/L (15-46) Alanine Aminotransferase (ALT/SGPT) 85IU/L (13-69) Alkaline Phosphatase 66IU/L (42-121) Total Protein 5.7g/dl (6.1-8.1) Albumin 2.7g/dl (3.3-4.9) Globulin 3.00g/dl (1.3-3.2) Albumin/Globulin Ratio 0.90 DARYN BERNABE MD Oct 17, 2017 15:13
--- NOTE | 2017-10-19 13:19 | RADRPT ---
Vent Rate: 121 bpm RR Interval: 0 msec RI Interval: 134 msec QRS Duration: 98 msec QT Interval: 338 msec QTC Interval: 479 msec P-R-T Silt: 66 - -24 - 64 degrees Sinus tachycardia with frequent premature ventricular complexes and fusion complexes Nonspecific ST abnormality Abnormal ECG Electronically Signed By: Jame Moreau [id number]
== END 2017-10-17 20:50 | disposition home or self-care (01) | DRG 871 ==
LOC: E/R 01:18 → TEL 04:13
PROVIDERS: ADMIT Family Medicine; ATTEND Family Medicine
DX: A41.9 Sepsis, unspecified organism (principal); I21.A1 Myocardial infarction type 2; J18.9 Pneumonia, unspecified organism; F10.239 Alcohol dependence with withdrawal, unspecified; Z72.0 Tobacco use; I10 Essential (primary) hypertension
CPT/HCPCS: 36415; 71010; 71250; 76705; 80048; 80053; 80061; 80202; 81001; 82550; 82553; 83036; 83605; 83735; 84443; 84484; 85025; 85610; 85730; 86704; 86709; 86803; 87040; 87086; 87340; 87400; 87502; 90686; 93005; 93306; 94640; 94664; 96374; 96375; J1650; J1956; J2060; J2543; J3370; J3480; J7030; J7040; J7050

== ENCOUNTER 2017-11-09 13:52 | Emergency (ER) | payer MEDICARE, BC ==
[~2017-11-09] VITALS: Ht 180.3 cm; Wt 109.1 kg
[~2017-11-09 13:52] MED LIST: ASPI-664 PO; DOXY100C PO; LISI-313 PO; METO-335 PO; SULF1TAB31 PO
[2017-11-09 14:03] VITALS: Ht 180.3 cm; Wt 109.1 kg
[2017-11-09 16:25] VITALS: TEMP 98.4
[2017-11-09] MEDS ORDERED: NICARDipine HCL 30 MG CAPSULE PO ONE (16:30)
[2017-11-09] MEDS ORDERED: AMLO-218 PO (17:03)
[2017-11-09] MEDS ORDERED: LISI20TA11 PO (17:03)
[2017-11-09] MEDS ORDERED: LISI10TA2 PO (17:03)
--- NOTE | 2017-11-09 17:06 | ERD ---
ER Documentation Chief Complaint Chief Complaint c/o htn , hadn't seen pmd x 2 months HPI This is a 67-year-old male who is just put on lisinopril 5 mg and metoprolol 25 mg a few days ago. Patient was taking other hypertensive and was switched to this. He says he is asymptomatic he was checking his blood pressure and had readings of 150-160/110-120. No focal neurological complaints no headache no blurry vision no weakness numbness or dizziness. ROS All systems reviewed and are negative except as per history of present illness. Medications Home Meds Active Scripts Lisinopril* (Lisinopril*) 10 Mg Tablet, 10 MG PO DAILY, #30 TAB Prov:IRVIN HIGGINS DO 11/09/17 Amlodipine Besylate* (Norvasc*) 10 Mg Tablet, 10 MG PO QHS, #30 TAB Prov:IRVIN HIGGINS DO 11/09/17 Sulfamethoxazole/Trimethoprim* (Bactrim Ds* Tablet) 1 Each Tablet, 1 TAB PO BID for 5 Days, #10 TAB Prov:DARYN BERNABE MD 10/17/17 Doxycycline* (Vibramycin*) 100 Mg Capsule, 100 MG PO BID for 5 Days, #10 EA Prov:DARYN BERNABE MD 10/17/17 Aspirin* (Aspirin* EC) 81 Mg Tablet.dr, 81 MG PO DAILY for 30 Days, #30 TAB 5 Refills Prov:DARYN BERNABE MD 10/17/17 Metoprolol Succinate* (Toprol XL*) 25 Mg Tab.sr.24h, 25 MG PO DAILY for 30 Days , #30 TAB Prov:DARYN BERNABE MD 10/17/17 Discontinued Scripts Lisinopril* (Lisinopril*) 20 Mg Tablet, 20 MG PO DAILY, #30 TAB Prov:IRVIN HIGGINS DO 11/09/17 Lisinopril* (Lisinopril*) 5 Mg Tablet, 5 MG PO DAILY for 30 Days, #30 TAB Prov:DARYN BERNABE MD 10/17/17 Allergies Allergies: Coded Allergies: No Known Allergy (Unverified , 10/14/17) PMhx/Soc History of Surgery: No Anesthesia Reaction: No Hx Neurological Disorder: No Hx Respiratory Disorders: No Hx Cardiac Disorders: No Hx Psychiatric Problems: No Hx Miscellaneous Medical Probl: Yes Hx Alcohol Use: Yes Hx Substance Use: No Hx Tobacco Use: Yes Smoking Status: Current every day smoker FmHx Family History: No coronary disease Physical Exam Vitals Vital Signs Date Time Temp Pulse Resp B/P Pulse Ox O2 Delivery O2 Flow Rate FiO2 11/09/17 16:25 98.4 68 18 158/108 98 Room Air 11/09/17 14:03 98.1 69 18 152/89 98 Physical Exam Const: Well-developed, well-nourished Head: Atraumatic, normocephalic Eyes: Normal Conjunctiva, PERRLA, EOMI, normal sclera, no nystagmus ENT: Normal External Ears, Nose and Mouth, moist mucus membranes. Neck: Full range of motion. No meningismus, no lymphadenopathy. Resp: Clear to auscultation bilaterally, no wheezing, rhonchi, rales Cardio: Regular rate and rhythm, no murmurs, S1 S2 present Abd: Soft, non tender x 4, non distended. Normal bowel sounds, no guarding or rebound, no pulsitile abdominal masses or bruits Skin: No petechiae or rashes, no ecchymosis , no maculopapular rash Back: No midline or flank tenderness Ext: No cyanosis, or edema, FROM x 4, normal inspection, neurovascularly intact x 4 Neur: Awake and alert, STR 5/5 x 4, sensation intact x 4, no focal findings, cerebellum intact Psych: Normal Mood and Affect Results 24 hrs Current Medications Medications (Trade) Dose Ordered Sig/Joey Route PRN Reason Start Time Stop Time Status Last Admin Dose Admin Nicardipine HCl (Cardene) 30 mg ONCE ONCE PO 11/09/17 16:30 11/09/17 16:31 DC 11/09/17 16:28 Procedures/MDM Patient's blood pressure is adequate at this time I will change him to Norvasc 10 and lisinopril 10 also follow-up with his primary Departure Diagnosis: Primary Impression: Hypertension Hypertension type: unspecified Qualified Code: I10 - Hypertension, unspecified type Condition: Stable Patient Instructions: High Blood Pressure (Hypertension) Referrals: NO PRIMARY,CARE PHYSICIAN (PCP) IRVIN HIGGINS DO Nov 09, 2017 17:06
[2017-11-09 17:32] VITALS: BP 123/80; PULSE 86; RESP 18
== END 2017-11-09 17:35 | disposition home or self-care (01) ==
LOC: E/R 13:52
DX: I10 Essential (primary) hypertension (principal); R40.2252 Coma scale, best verbal response, oriented, at arrival to emergency department; R40.2142 Coma scale, eyes open, spontaneous, at arrival to emergency department; R40.2362 Coma scale, best motor response, obeys commands, at arrival to emergency department; F17.210 Nicotine dependence, cigarettes, uncomplicated; Z79.82 Long term (current) use of aspirin
CPT/HCPCS: 99284